=== PATIENT | female | born 1965 | race Caucasian/White ===

== ENCOUNTER 2020-12-03 12:35 | Emergency (ER) | payer OTHER ==
[~2020-12-03] VITALS: Ht 165.1 cm; Wt 56.7 kg
--- NOTE | 2020-12-03 12:50 | NUR ---
Dr Wooten at the bedside.
--- NOTE | 2020-12-03 12:51 | NUR ---
The patient is alert and oriented x4. BIBS for c/o R back pain x 3 days. Denies any trauma. Respiration regular and unlabored. Will contnue to monitor the patient.
[2020-12-03] MEDS ORDERED: KETOROLAC TROMETHAMINE INJ 30 MG/ML VIAL IV ONE (13:00)
[2020-12-03] MEDS ORDERED: KETOROLAC TROMETHAMINE 15 MG/ML VIAL ONE (13:07)
[2020-12-03 13:10] LABS: BASOPHILS % (AUTO) 0.3 % (0.0-2.0); EOSINOPHILS % (AUTO) 3.7 % (0.0-6.0); HEMATOCRIT 42 % (33-45); HEMOGLOBIN 14.2 g/dL (11.5-14.8); LYMPHOCYTES # (AUTO) 1.4 /CMM (0.8-4.8); LYMPHOCYTES % (AUTO) 29.4 % (20.0-44.0); MEAN CORPUSCULAR HGB CONC 34 g/dl (31.0-36.0); MEAN CORPUSCULAR VOLUME 98 fL (82-100); MONOCYTES # (AUTO) 0.5 /CMM (0.1-1.30); MONOCYTES % (AUTO) 10.1 % (2.0-12.0); NEUTROPHILS # (AUTO) 2.8 /CMM (1.8-8.9); NEUTROPHILS % (AUTO) 56.5 % (43.0-81.0); PLATELET COUNT (AUTO) 104 /CMM (150-450); RED BLOOD CELL COUNT(AUTO) 4.29 MIL/uL (4.0-5.2); WHITE BLOOD COUNT (AUTO) 4.9 K/uL (4.3-11.0)
[2020-12-03 13:26] LABS: ALANINE AMINOTRANSFERASE 21 U/L (12-78); ALBUMIN 3.7 g/dL (3.4-5.0); ALKALINE PHOSPHATASE 86 U/L (46-116); ASPARTATE AMINOTRANSFERASE 15 U/L (15-37); BILIRUBIN,DIRECT 0.1 mg/dL (0.0-0.2); BILIRUBIN,TOTAL 0.3 mg/dL (0.2-1.0); CARBON DIOXIDE 29 mmol/L (21-32); CHLORIDE 106 mmol/L (98-107); CREATININE 0.8 mg/dL (0.6-1.3); GLUCOSE 108 mg/dL (74-106); LIPASE 137 U/L (73-393); POTASSIUM 4.3 mmol/L (3.5-5.1); SODIUM SERUM 140 mmol/L (136-145); TOTAL PROTEIN, SERUM 6.7 g/dL (6.4-8.2); UREA NITROGEN, BLOOD 14 mg/dL (7-18)
[2020-12-03 13:45] LABS: BILIRUBIN,URINE Negative (NEGATIVE); COLOR,URINE YELLOW (YELLOW); LEUKOCYTE ESTERASE ,URINE Negative (NEGATIVE); NITRITE, URINE Negative (NEGATIVE); PH,URINE 8.5 (5.0-8.0); PROTEIN,URINE Negative (NEGATIVE); UGLUCOSE Negative (NEGATIVE); UROBILINOGEN,URINE 0.2 EU/dL (0.2)
[2020-12-03] MEDS ORDERED: CARI350T PO (13:50)
--- NOTE | 2020-12-03 15:47 | NUR ---
The patient alert and oriented x4. Denies pain. Patient discharged to home in stable condition. Written and verbal after care instructions given. Patient verbalizes understanding of instruction.
[2020-12-03 15:48] VITALS: BP 133/91
== END 2020-12-03 15:49 | disposition home or self-care (01) ==
LOC: ER 12:45
DX: R10.31 Right lower quadrant pain (principal); R10.11 Right upper quadrant pain; D64.9 Anemia, unspecified
CPT/HCPCS: 36415; 71045; 80048; 80076; 81003; 83690; 84484; 85025; 85378; 93005; 96374; 99285; J1885

== ENCOUNTER 2022-02-04 18:54 | Emergency (ER) | payer OTHER ==
[~2022-02-04] VITALS: Ht 157.5 cm; Wt 81.4 kg
[~2022-02-04 18:54] MED LIST: CARI350T PO
[2022-02-04] MEDS ORDERED: KETOROLAC TROMETHAMINE INJ 30 MG/ML VIAL ONE (19:37)
[2022-02-04] MEDS ORDERED: ACETAMINOPHEN ES 500 MG TABLET ONE (19:37)
[2022-02-04] MEDS ORDERED: PROCHLORPERAZINE EDISYLATE 10 MG/2 ML VIAL ONE (19:37)
[2022-02-04] MEDS ORDERED: SUMATRIPTAN SUCCINATE 6 MG/0.5 ML VIAL SQ ONE ×2 (19:37→20:00)
--- NOTE | 2022-02-04 19:43 | NUR ---
BIBS FOR C/O CP RADIATING TO BACK SINCE YESTERDAY. RATES PAINS 10/10 RADIATING TO LT ARM WITH NUMBNESS TO EXTREMITY. +N/V AND MIGRAINE. AWAKE AND ALERT X4 BREATHING EVEN AND UNLABORED. ALL V/S WNL.
[2022-02-04] MEDS ORDERED: KETOROLAC TROMETHAMINE INJ 30 MG/ML VIAL IM ONE (20:00)
[2022-02-04] MEDS ORDERED: PROCHLORPERAZINE EDISYLATE 10 MG/2 ML VIAL IM ONE (20:00)
[2022-02-04] MEDS ORDERED: ACETAMINOPHEN ES 500 MG TABLET PO ONE (20:00)
[2022-02-04] MEDS ORDERED: METOCLOPRAMIDE HCL 10 MG/2 ML VIAL IM ONE (21:00)
[2022-02-04] MEDS ORDERED: METOCLOPRAMIDE HCL 10 MG/2 ML VIAL ONE (21:12)
[2022-02-04] MEDS ORDERED: METO-295 PO (21:43)
[2022-02-04] MEDS ORDERED: PROC5TAB56 PO (21:43)
[2022-02-04] MEDS ORDERED: SUMA100T16 PO (21:43)
[2022-02-04 21:54] VITALS: BP 118/76
--- NOTE | 2022-02-04 21:54 | NUR ---
Patient discharged to home in stable condition. Written and verbal after care instructions given. Patient verbalizes understanding of instruction.
== END 2022-02-04 21:55 | disposition home or self-care (01) ==
LOC: ER 18:58
DX: R51.9 Headache, unspecified (principal); R07.89 Other chest pain; R10.32 Left lower quadrant pain; I10 Essential (primary) hypertension; F41.9 Anxiety disorder, unspecified; F32.A Depression, unspecified; F43.10 Post-traumatic stress disorder, unspecified; D64.9 Anemia, unspecified; Z60.2 Problems related to living alone; Z79.899 Other long term (current) drug therapy
CPT/HCPCS: 99284; 71045; 96372 ×2; 93005; J0780; J3030; J2765; J1885